=== PATIENT | female | born 1960 | race Caucasian/White ===

== ENCOUNTER 2019-08-18 14:11 | Emergency (ER) | payer MEDICARE, MEDICAID ==
[~2019-08-18] VITALS: Ht 162.6 cm; Wt 68.2 kg
[2019-08-18 14:18] VITALS: Ht 162.6 cm; Wt 68.2 kg
[2019-08-18] MEDS ORDERED: HYDROCODON-ACE1 EA10 PO (14:20)
[2019-08-18] MEDS ORDERED: ADALAT CC90 MG PO (14:20)
[2019-08-18] MEDS ORDERED: OMEPRAZOLE20 M1 PO (14:21)
[2019-08-18] MEDS ORDERED: HYDROCHLOROTH12.5 M1 PO (14:21)
[2019-08-18] MEDS ORDERED: CYMBALTA60 MG PO (14:21)
[2019-08-18 15:24] LABS: APPEARANCE CLEAR (CLEAR); BILIRUBIN NEGATIVE (NEGATIVE); COLOR YELLOW (YELLOW); GLUCOSE NEGATIVE (NEGATIVE); KETONE NEGATIVE (NEGATIVE); NITRITE NEGATIVE (NEGATIVE); PROTEIN NEGATIVE (NEGATIVE); SPECIFIC GRAVITY 1.015 (1.005-1.020); UROBILINOGEN NORMAL (NORMAL)
[2019-08-18 15:25] LABS: EPITHELIAL CELLS 0-5 /hpf (0-5); RED CELLS - URINE OCC /hpf (0-5); WHITE CELLS - URINE 0-5 /hpf (NEGATIVE)
[2019-08-18 15:26] LABS: BACTERIA FEW /hpf (NEGATIVE)
[2019-08-18] MEDS ORDERED: VOLTAREN75 MG PO (16:54)
[2019-08-18 17:43] VITALS: BP 126/60
== END 2019-08-18 17:43 | disposition home or self-care (01) ==
LOC: D.ER 14:11
PROVIDERS: Family Medicine
DX: R07.81 Pleurodynia (principal); W19.XXXA Unspecified fall, initial encounter